=== PATIENT | female | born 1995 | race Caucasian/White ===

== ENCOUNTER → 2023-12-25 14:36 | Outpatient (BNVA) | payer BC, SELFPAY | PROVIDERS: PCP Nurse Practitioner Family; Referring Provider Nurse Practitioner Family; Visit Provider Student in an Organized Health Care Education/Training Program | DX: M25.561 Pain in right knee (principal); S83.206A Unspecified tear of unspecified meniscus, current injury, right knee, initial encounter; S83.8X1A Sprain of other specified parts of right knee, initial encounter; M25.562 Pain in left knee; X58.XXXA Exposure to other specified factors, initial encounter | CPT/HCPCS: 73560; 73565 ==

== ENCOUNTER 2024-01-27 10:03 | Outpatient (CLI) | payer BC, SELFPAY ==
--- NOTE | 2024-01-27 10:15 | MR_ITS ---
WS: [id number] MRI RIGHT KNEE NONCONTRAST TECHNIQUE: Axial PD, coronal PD fat sat, coronal PD, sagittal PD, and sagittal PD fat-sat images obta ined. CLINICAL INFORMATION: right knee injury, rule out meniscal tear COMPARISON: MRI 2010 FINDINGS: Evidence of prior intramedullary usama fixation femur with removal. Distal quadriceps and patella tendons are intact. Diffuse fusiform thickening of the patella tendon w ith susceptibility artifact in this area presumably due to prior patellar tendon repair. Normal signa l in the patella tendon. Recommend correlation with prior surgery. Hypertrophic patella. 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 Smal l suprapatellar effusion. Chondral fissuring involving the patellar cartilage. ACL and PCL appear intact. Hypertrophic changes along the joint line. Fibular head appears normal. Ch ronic thinning of the medial and lateral meniscus. No acute appearing meniscal tears. Grade III chond romalacia in the medial and lateral joint compartments worse in the medial joint compartment. Hypertr ophic changes along the joint line. MR/MR knee RT wo con* [id number] IMPRESSION: 1. Evidence of prior intramedullary usama fixation femur with removal. 2. ACL and PCL appear intact. 3. Diffuse fusiform thickening of the patella tendon with susceptibility artif act in this area may be postoperative due to prior primary repair. Recommend co rrelation with clinical history. Otherwise this can be seen with tendinopathy a lthough no significant increased T2 signal abnormality. 4. Advanced chondromalacia patella with chondral fissuring. Small suprapatella r effusion. 5. Medial and lateral collateral ligaments appear intact. 6. No acute appearing meniscal tears Outbridge grading: grade III: partial-thickness cartilage loss with focal ulcer ation
== END 2024-01-27 10:04 | disposition home or self-care (01) ==
LOC: RAD 10:04
PROVIDERS: PCP Nurse Practitioner Family; Visit Provider Student in an Organized Health Care Education/Training Program
DX: M22.41 Chondromalacia patellae, right knee (principal); M25.461 Effusion, right knee; Z98.890 Other specified postprocedural states
CPT/HCPCS: 73721

== ENCOUNTER 2024-02-29 17:27 | Emergency (ER) | payer SELFPAY ==
[2024-02-29 17:31] VITALS: BP 155/97; PULSE 84; RESP 16; TEMP 36.4; O2SAT 100
--- NOTE | 2024-02-29 18:23 | USR_ITS ---
PROCEDURE INFORMATION: Exam: US , Transvaginal Exam date and time: 02/29/2024 6:44 PM Age: 28 years old Clinical indication: Other: Bleeding; Additional info: 7w vaginal bleeding with clots. LABS AND CLINICAL REPORTS: Last menstrual period start date: 01/06/2024 TECHNIQUE: Imaging protocol: Real-time transvaginal obstetrical ultrasound of the maternal pelvis with image documentation. Transvaginal imaging was used for better evaluation of the fetus, adnexa, and/or cervix. COMPARISON: No relevant prior studies available. FINDINGS: Gestation: No evidence for an intrauterine gestation. heart rate: See under Gestation . Placenta: See under Gestation . Amniotic fluid (Qualitative): See under Gestation . BIOMETRY: Gestational age (AUA): See under Gestation . MATERNAL: Uterus: Uterus measures 8.0 cm x 4.66 cm x 3.38 cm. The endometrium is unremarkable. Endometrial thickness measures 6 mm. Cervix: Multiple Nabothian cysts in the cervix. Right ovary/adnexa: Multiple subcentimeter follicles in the right ovary. The right ovary measures 2.8 x 1.9 x 3.2 cm. Left ovary/adnexa: Multiple subcentimeter follicles in the left ovary. The left ovary measures 2.7 x 2.7 x 2.1 cm. Intraperitoneal space: No free fluid in the pelvis. Vasculature: Normal arterial and venous waveforms on Doppler imaging in the right ovary. Normal arterial and venous waveforms on Doppler imaging in the left ovary. US/US transvaginal [id number] IMPRESSION: No evidence for an intrauterine gestation. Recommend clinical correlation. Followup with ultrasound in 1-2 weeks worsening tumor is recommended if the patient is hemodynamically stable.
--- NOTE | 2024-02-29 18:33 | W.ED.FEMALGU ---
HPI - Female Genitourinary General: Chief complaint: Vaginal Bleeding Stated complaint: miscarriage, Time Seen by Provider: 02/29/24 18:08 History of Present Illness: 28-year-old G1, P0 female who believes she is 7 weeks presenting with vaginal bleeding. She says that she had significant bleeding Friday and Friday, with passage of 1 significant clot today. Cramping is pretty much improved at this point. She is O-, and believes she needs RhoGAM. She denies fever or other discharge. Associated symptoms: Reports abdominal pain and nausea; Deny vaginal discharge Review of Systems Resp: Denies: dyspnea GI: Reports: abdominal pain and nausea; Denies: vomiting : Reports: vaginal bleeding and pelvic pain; Denies: flank pain, difficulty voiding, dysuria or vaginal discharge [facility] PFSH: Medical History (Updated 02/29/24 @ 19:40 by Ricardo Ortiz DO) Hx of fracture of femur Surgical History Hx of knee surgery right History of removal of retained hardware History of tonsillectomy and adenoidectomy Family History Grandmother Cancer Stroke Grandfather Diabetes Hyperlipidemia Hypertension Mother Hyperlipidemia Denies family history of CAD (coronary artery disease) Clotting disorder Dementia Psychiatric illness Chronic kidney disease (CKD) Suicide Anesthesia complication Bleeding disorder Family history of premature coronary artery disease Lung disease Social History Smoking and tobacco/nicotine status: never used tobacco/nicotine Alcohol intake: current Alcohol intake frequency: holidays/special occasions only Substance/Drug Use: never Physical Exam Const: COMMON NORMALS: no acute distress GENERAL APPEARANCE: cooperative; not ill appearing and not frail appearing HENMT: COMMON NORMALS: normocephalic, atraumatic and Normal external nose present HEAD & SCALP: normocephalic and atraumatic FACE & SINUS: normal facial exam and face symmetric NOSE: Normal external nose present Eye: COMMON NORMALS: Equal, round and reactive pupils present and EOMs intact bilaterally PUPIL: Yes Equal, round and reactive pupils present Neck/C-Spine: GENERAL: Yes trachea midline Chest: CHEST: Yes Symmetrical chest wall rise Resp: COMMON NORMALS: normal respiratory effort, No retractions, No use of accessory muscles and clear to auscultation bilaterally AUSCULTATION: clear to auscultation bilaterally Cardio: COMMON NORMALS: regular rate and regular rhythm RATE: regular rate RHYTHM: regular rhythm GI: COMMON NORMALS: Normal to inspection, nondistended, normoactive bowel sounds present Extremity: COMMON NORMALS: no pedal edema Neuro: PHIL COMA SCALE: document GCS findings Phil coma scale eye opening: Spontaneous [place] coma scale verbal response: Orientated [place] coma scale motor response: Obey commands [place] coma scale total score: 15 SENSORY EXAM: Yes extremities (intact) Psych: COMMON NORMALS: speech normal SPEECH: Yes normal speech Skin: COMMON NORMALS: no rashes or lesions noted GENERAL SKIN EXAM: no rashes or lesions noted Course Vital Signs: Vital signs: Vital Signs Temperature 97.6 F 02/29/24 17:31 Pulse Rate 68 02/29/24 19:18 Respiratory Rate 16 02/29/24 19:18 Blood Pressure 121/80 02/29/24 19:18 Pulse Oximetry 95 02/29/24 19:18 Oxygen Delivery Me thod Room Air 02/29/24 19:18 MDM - Female Medical Decision Making CBC and CMP are normal. Serum quant is 788. There is no IUP on ultrasound. This likely missed given close cervix. She is O-. Counseled on lack of evidence for or against use of RhoGAM before 12 weeks. She wishes to proceed with RhoGAM. She will get that here, and be allowed discharge. Counseled that she needs a repeat serum quant to confirm decreasing in a few days. She will see your doctor. Return for any brisk bleeding or worsening symptoms. Lab Data 02/29/24 18:25 02/29/24 18:25 Radiology Impressions Transvaginal US 02/29/24 18:23 IMPRESSION: No evidence for an intrauterine gestation. Recommend clinical correlation. Followup with ultrasound in 1-2 weeks worsening tumor is recommended if the patient is hemodynamically stable. Laboratory Results WBC 6.50 10^3/uL (3.29-11.43) 02/29/24 18:25 RBC 4.76 10^6/uL (3.85-5.65) 02/29/24 18:25 Hgb 13.60 g/dL (11.27-16.99) 02/29/24 18:25 Hct 41.8 % (36-47) 02/29/24 18:25 MCV 87.8 fl (85-98) 02/29/24 18:25 MCH 28.6 pg (27-33) 02/29/24 18:25 MCHC 32.5 g/dL (30-55) 02/29/24 18:25 RDW 14.3 % (12.1-15.1) 02/29/24 18:25 Plt Count 221 10^3/cmm (157-399) 02/29/24 18:25 MPV 10.1 fL (7.4-10.4) 02/29/24 18:25 Neut % (Auto) 47.0 % 02/29/24 18:25 Lymph % (Auto) 43.4 % 02/29/24 18:25 [place] % (Auto) 6.5 % 02/29/24 18:25 Eos % (Auto) 2.6 % 02/29/24 18:25 Baso % (Auto) 0.3 % 02/29/24 18:25 Neut # (Auto) 3.06 10^3/uL (1.8-7.7) 02/29/24 18:25 Lymph # (Auto) 2.8 10^3/uL (0.8-4.8) 02/29/24 18:25 [place] # (Auto) 0.4 10^3/uL (0.2-0.9) 02/29/24 18:25 Eos # (Auto) 0.2 10^3/uL (0.0-0.8) 02/29/24 18:25 Baso # (Auto) 0.0 10^3/uL (0.0-0.1) 02/29/24 18:25 Nucleated RBC % (auto) 0 % 02/29/24 18: Nucleated RBCs # 0.0 /100WBC 02/29/24 18:25 Sodium 138 mmol/L (136-145) 02/29/24 18:25 Potassium 4.0 mmol/L (3.5-5.1) 02/29/24 18:25 Chloride 103 mmol/L (98-107) 02/29/24 18:25 Carbon Dioxide 23 mmol/L (22-29) 02/29/24 18:25 Anion Gap 16.0 (5-19) 02/29/24 18:25 BUN 15 mg/dL (6-20) 02/29/24 18:25 Creatinine 0.9 mg/dL (0.5-0.9) 02/29/24 18:25 GFR Calculation 74.0 mL/min (90-130) L 02/29/24 18:25 Glucose 88 mg/dL (65-115) 02/29/24 18:25 Calculated Osmolality 286 mOsm/kg (285-295) 02/29/24 18:25 Calcium 9.3 mg/dL (8.5-10.5) 02/29/24 18:25 Total Bilirubin 0.2 mg/dL (0.15-1.2) 02/29/24 18:25 AST 19 U/L (0-32) 02/29/24 18:25 ALT 17 U/L (0-33) 02/29/24 18:25 Alkaline Phosphatase 65 U/L (35-105) 02/29/24 18:25 Total Protein 7.0 g/dL (6.6-8.7) 02/29/24 18:25 Albumin 4.4 g/dL (3.5-5.2) 02/29/24 18:25 Globulin 2.6 g/dL (1.3-4.6) 02/29/24 18:25 Ser , Semi-Qnt 788.00 mIU/mL 02/29/24 18:25 Urine Color Yellow (Yellow) 02/29/24 18:38 Urine Appearance Clear (CLEAR) 02/29/24 18:38 Urine pH 6.5 (5-7) 02/29/24 18:38 Ur Specific [place] 1.015 (1.005-1.030) 02/29/24 18:38 Urine Protein 1+ (Negative) H 02/29/24 18:38 Urine Glucose (UA) Norm (Normal) 02/29/24 18:38 Urine Ketones 1+ (Negative) H 02/29/24 18:38 Urine Blood 3+ (Negative) H 02/29/24 18:38 Urine Nitrate Negative (Negative) 02/29/24 18:38 Urine Bilirubin Neg (Negative) 02/29/24 18:38 Urine Urobilinogen 1 mg/dL (Negative) H 07/07/24 18:38 Ur Leukocyte Esterase Trace (Negative) H 02/29/24 18:38 Urine RBC 0-4 /hpf (0-2) H 02/29/24 18:38 Urine WBC 0-4 /hpf (0-5) H 02/29/24 18:38 Ur Squamous Epith Cells 0-4 /hpf (0-5) H 02/29/24 18:38 Amorphous Sediment Not Reportable 02/29/24 18:38 Urine Bacteria Trace /hpf (NONE) 02/29/24 18:38 Urine Mucus Trace /hpf 02/29/24 18:38 Blood Type O Negative 02/29/24 18:25 Rho(D) Type Rh negative 02/29/24 18:25 All radiology interpretation(s) finalized by discharge Discharge Plan Discharge Patient Disposition: Home Clinical Impression: Missed Condition: Stable Prescriptions: No Action No Known Home Medications Discharge Orders: Discharge ED (Routine); Ordered 02/29/24 Ordered By: Ricardo Ortiz Referrals: Mary Amado FNP [Primary Care Provider] - 1-3 days Patient Instructions: Miscarriage (ED), Opioid Safety, Pain Management Activity Restrictions/Additional Instructions: You should have your serum quantitative test redrawn in a couple of days. Until that time, pelvic rest. No intercourse. Do not lift more than 10 to 15 pounds, limit stooping and climbing stairs. Return for brisk vaginal bleeding, soaking a pad an hour for more than 2 to 3 hours. Return also for fever. See your doctor next week otherwise. Coding Level of Care Code ED Deployment Technician for Nicolette Hensley
[2024-02-29 18:36] LABS: Basophils % 0.3 %; Eosinophils # 0.2 10^3/uL (0.0-0.8); Eosinophils % 2.6 %; Hematocrit 41.8 % (36-47); Lymphocytes # 2.8 10^3/uL (0.8-4.8); Lymphocytes % 43.4 %; Mean Corpuscular HGB Conc 32.5 g/dL (30-55); Mean Corpuscular Hemoglobin 28.6 pg (27-33); Mean Corpuscular Volume 87.8 fl (85-98); Mean Platelet Volume 10.1 fL (7.4-10.4); Monocytes # 0.4 10^3/uL (0.2-0.9); Monocytes % 6.5 %; Neutrophils # 3.06 10^3/uL (1.8-7.7); Nucleated Red Blood Cells % 0 %; Platelet Count 221 10^3/cmm (157-399); Red Blood Count 4.76 10^6/uL (3.85-5.65); Red Cell Distribution Width 14.3 % (12.1-15.1)
[2024-02-29 19:05] LABS: Bilirubin Urine Neg (Negative); Blood Urine 3+ (Negative); Glucose Urine UA Norm (Normal); Ketones Urine 1+ (Negative); Nitrate Urine Negative (Negative); Protein Urine 1+ (Negative); Specific Gravity, Urine 1.015 (1.005-1.030); Urine Appearance Clear (CLEAR); Urine Color Yellow (Yellow); pH Urine 6.5 (5-7)
[2024-02-29 19:06] LABS: Add Urine Culture? No; Add Urine Microscopic? YES; Bacteria Urine TRACE /hpf; Leukocyte Esterase Urine Trace (Negative); Mucus Urine TRACE /hpf; RBC Urine 0-4 /hpf (0-2); Squamous Epithelial Cell Urine 0-4 /hpf (0-5); Urobilinogen Urine 1 mg/dL (Negative); WBC Urine 0-4 /hpf (0-5)
[2024-02-29 19:13] LABS: Alanine Aminotransferase 17 U/L (0-33); Albumin Level 4.4 g/dL (3.5-5.2); Alkaline Phosphatase 65 U/L (35-105); Aspartate Amino Transferase 19 U/L (0-32); Blood Urea Nitrogen 15 mg/dL (6-20); Calcium 9.3 mg/dL (8.5-10.5); Carbon Dioxide 23 mmol/L (22-29); Chloride 103 mmol/L (98-107); Creatinine Clr Calc Pharmacy 95.3383; Globulin 2.6 g/dL (1.3-4.6); Glucose 88 mg/dL (65-115); Osmolality Calculated 286 mOsm/kg (285-295); Sodium 138 mmol/L (136-145); Total Bilirubin 0.2 mg/dL (0.15-1.2)
[2024-02-29 19:18] VITALS: BP 121/80; PULSE 68; RESP 16; O2SAT 95
[2024-02-29 20:29] VITALS: BP 112/74; PULSE 63; RESP 18; TEMP 36.8; O2SAT 98
[2024-02-29] MEDS: rho(d) immune globulin 1,500 unit Syringe 1500 UNIT IM (20:32)
[2024-02-29 20:54] VITALS: BP 112/74; PULSE 65; RESP 18; O2SAT 97
== END 2024-02-29 20:55 | disposition home or self-care (01) ==
PROVIDERS: Emergency Medicine; Emergency Provider Emergency Medicine; PCP Nurse Practitioner Family
DX: O02.1 Missed abortion (principal)
CPT/HCPCS: 36415; 36430; 76830; 80053; 81001; 84702; 85025; 86850; 86900; 90384; 96372; 99284; J2790

== ENCOUNTER 2024-07-13 07:23 | Outpatient (CLI) | payer OTHER, SELFPAY ==
[2024-07-13 07:39] VITALS: BP 140/80; PULSE 75
[2024-07-13 07:52] VITALS: BMI 38.7
[2024-07-13 07:57] VITALS: BP 121/64; PULSE 69
== END 2024-07-13 08:04 | disposition home or self-care (01) ==
LOC: OPOB 07:29 → OBGYN 07:34
PROVIDERS: PCP Nurse Practitioner Family; Visit Provider Family Medicine
DX: O36.8190 Decreased fetal movements, unspecified trimester, not applicable or unspecified (principal); Z3A.00 Weeks of gestation of pregnancy not specified
CPT/HCPCS: 99211

== ENCOUNTER → 2024-12-08 09:07 | Outpatient (BNVA) | payer OTHER, SELFPAY | PROVIDERS: PCP Nurse Practitioner Family; Visit Provider Physician Assistant | DX: M94.261 Chondromalacia, right knee (principal); S83.8X1D Sprain of other specified parts of right knee, subsequent encounter; X58.XXXD Exposure to other specified factors, subsequent encounter; Z09 Encounter for follow-up examination after completed treatment for conditions other than malignant neoplasm | CPT/HCPCS: 73560; 73565 ==